=== PATIENT | female | born 1995 | race Caucasian/White ===

== ENCOUNTER 2020-11-26 17:53 | Emergency (ER) | payer OTHER, SELFPAY ==
--- NOTE | 2020-11-26 17:59 | ED.SKABFB ---
HPI - Skin/Abscess/Foreign Bdy General Chief complaint: Skin/Abscess/Foreign Body Stated complaint: cyst Time Seen by Provider: 11/26/20 18:10 Source: patient and RN notes reviewed Mode of arrival: ambulatory Limitations: no limitations History of Present Illness HPI narrative: 25-year-old female presents concern for a boil to her right lower buttock. Reports history of similar boils in the past that needed drained. Reports symptoms have been present for approximately 4 days. Denies any current drainage from the area. Denies fever, body aches, chills, sweats. Denies any other rash, open sores. complaint: abscess/boil Related Data Home Medications Medication Instructions Recorded Confirmed No Home Medications 11/26/20 11/26/20 Allergies Allergy/AdvReac Type Severity Reaction Status Date / Time No Known Allergies Allergy Verified 11/26/20 18:12 Review of Systems Review of Systems: CONSTITUTIONAL: Denies malaise, chills, sweats, or fever. SKIN: Reports a boil on the right buttock MUSCULOSKELETAL: Denies myalgia. All systems reviewed & are unremarkable except as noted in HPI and below PMFSH Comments At time of signature, agree with nursing past medical, surgical, social and family history. There is no relevant family history pertinent to the presenting complaint Exam Narrative: GENERAL: Well-appearing, well-nourished, and in no acute distress. HEAD: Normocephalic, atraumatic. EYES: PERRLA, conjunctivae clear, and EOMI. ENT: Mucous membranes moist. Oropharynx without edema, erythema or lesions. NECK: Supple. No lymphadenopathy CHEST: Clear to auscultation. No respiratory distress. HEART: Regular rate and rhythm. SKIN: Warm, dry. 3 cm raised area, fluctuant, mildly erythematous noted to the lower right buttock with an additional surrounding 2 cm palpable round area beneath the skin NEURO: Alert and oriented x3. PSYCH: Normal mood and affect Course Course Emergency Course: Discussed with patient possibility of need for antibiotics, based on results of culture. Patient prefers to wait for culture results to start antibiotic. Advised patient to use warm compresses, keep the area clean and dry. After drainage there is no concerning erythema, induration, waiting to start antibiotics is appropriate at this time Patient is aware of diagnosis, understands and agrees to treatment plan. Anticipatory guidance given. Patient agrees to follow-up as directed and is aware of reasons to seek care at the emergency department. Portions of this record may have been created with voice recognition software Vital Signs Vital signs: Reviewed. Procedures Abscess I/D lower extremity: Date of Incision: 11/26/20 Time of Incision: 18:24 Local Anesthetic: lidocaine 1% Amount of anesthesia used (mL): 3 Technique: incised with #11 blade Amount of fluid expressed (mL): 5 Irrigation: Yes Packing used?: none I&D Results: Pus MDM - Skin/Abscess/Foreign Bdy MDM Narrative Medical decision making narrative: Verbal consent was obtained. The indication for the procedure was clinical suspicion for an abscess. The region was anesthetized with 1% lidocaine. The most fluctuant portion of the abscess was incised with an 11 blade scalpel. The abscess cavity of explored and evacuated, all loculations were broken up with a curved hemostat. The cavity was then packed with packing material and dressed with a clean gauze dressing. I was present for this entire procedure and there were no complications Critical Care Time Critical Care Time Critical Care Time: No Discharge Plan Discharge Clinical Impression: Abscess of skin or subcutaneous tissue Qualifiers: Site of cutaneous abscess: buttock Qualified Code(s): L02.31 - Cutaneous abscess of buttock Patient Disposition: Home, Self-Care Condition: Stable Instructions: Abscess (ED) Additional Instructions: If the culture of yo
[2020-11-26 18:07] VITALS: BP 112/60; RESP 18; TEMP 36.9; O2SAT 100
--- NOTE | 2020-12-22 15:02 | PC.NURSE ---
Patient called to get her antibiotic from 11/26/20, D[employer] T[employer] OPERATOR Lilia Hopkins advised her we cannot prescribe antibiotic from 25 days ago and she will need to be reevaluated
== END 2020-11-26 18:43 | disposition home or self-care (01) ==
PROVIDERS: Emergency Provider Nurse Practitioner
DX: L02.31 Cutaneous abscess of buttock (principal)
CPT/HCPCS: 10060; 87070; 87075; 87077; 87186; 87205; 99202; G0463

== ENCOUNTER 2020-12-22 18:43 | Emergency (ER) | payer OTHER, SELFPAY ==
[2020-12-22 19:00] VITALS: BP 105/64; PULSE 89; RESP 18; TEMP 37.4; O2SAT 100
--- NOTE | 2020-12-22 19:05 | ED.SKABFB ---
HPI - Skin/Abscess/Foreign Bdy General Chief complaint: Skin/Abscess/Foreign Body Stated complaint: Cyst Time Seen by Provider: 12/22/20 19:06 Source: patient Mode of arrival: ambulatory Limitations: no limitations History of Present Illness HPI narrative: 25-year-old female presents to the [facility] with complaints of an abscess to her right buttock/thigh. Patient was seen for the same approximately 1 month ago. Did not follow-up nor take antibiotics. Related Data Allergies Allergy/AdvReac Type Severity Reaction Status Date / Time No Known Allergies Allergy Verified 12/22/20 18:51 Review of Systems Review of Systems: All systems reviewed & are unremarkable except as noted in HPI and below Constitutional: Constitutional: Reports no additional constitutional complaints, Denies chills and Denies fever(s) Eyes: Eyes: Reports no additional eye complaints ENT: Reports system reviewed and no additional complaints, except as documented Cardiovascular: Cardiovascular: Reports no additional cardiovascular complaints and Denies chest pain Respiratory: Respiratory: Reports no additional respiratory complaints and Denies cough Gastrointestinal: Gastrointestinal: Reports no additional gastrointestinal complaints and Denies abdominal pain Musculoskeletal: Musculoskeletal: Reports no additional musculoskeletal complaints Integumentary/Breasts: Skin/Breast: Reports as per HPI and Reports erythema (right lower buttock) Neurologic: Reports system reviewed and no additional complaints, except as documented Psychiatric: Psychiatric: Reports no additional psychiatric complaints Allergic/Immunologic: Allergic/Immunologic: Reports no additional allergic/immunologic complaints PMFSH Past Medical History Medical History (Updated 12/22/20 @ 20:00 by Lilia Hopkins) Patient denies medical problems Surgical History Surgical History (Updated 12/22/20 @ 20:00 by Lilia Hopkins) No significant past surgical history Social History Social History (Updated 12/22/20 @ 20:00 by Lilia Hopkins) Living arrangements: with family Gender identity (if verbalized by the patient): Female Comments At the time of my signature, I reviewed and agree with the nursing past medical, surgical, social, and family history. There is no relevant family history pertinent to the patient complaint. Exam Const: General: healthy appearing, no acute distress and alert Nutritional Appearance: well nourished Orientation/consciousness: patient oriented x3 Limitations: no limitations HENMT: Head: normal to inspection Eyes: Conjunctivae: conjunctivae normal Pupils: Equal, round and reactive pupils present Neck: Neck: normal visual inspection and no lymphadenopathy Chest: Chest palpation & inspection: normal inspection of the chest Resp: Effort & Inspection: normal respiratory effort Cardio: Rate: regular rate Rhythm: regular rhythm Back/Spine/Pelvis: Back: no CVA tenderness Skin: Other: 3 x 3 cm indurated area with a open center, fluctuant. Neuro: General: patient oriented x3, moves all extremities, no meningeal signs and no focal motor deficits Speech: normal speech Gait exam (Neuro): Normal gait present Extrem: General: normal to inspection Psych: Appearance: grossly normal and well kempt Mental Status: mental status grossly normal Affect: normal affect Attitude: cooperative Thought content: Yes Normal thought content present Course Course Emergency Course: Discharge instructions reviewed with patient, as well as provided in writing per nursing staff. The instructions also include specific and strict return/GO TO THE ER as well as f/u information. All questions have been answered, and the patient deny any further questions with discharge and discharge plan. Vital Signs Vital signs: Vital Signs Temperature 99.3 F 12/22/20 19:00 Pulse Rate 89 12/22/20 19:00 Respiratory Rate 18 12/22/20 19:00 Blood Pressure 105/64
[2020-12-22] MEDS: LIDOCAINE HCL 1% LOCAL INJ 20 ML VIAL 2.1 ML IM (19:40)
[2020-12-22] MEDS: cefTRIAXone 1 GM VIAL IM (19:40)
== END 2020-12-22 20:00 | disposition home or self-care (01) ==
PROVIDERS: Emergency Provider Nurse Practitioner
DX: L02.31 Cutaneous abscess of buttock (principal); L03.317 Cellulitis of buttock
CPT/HCPCS: 10060; 87070; 87075; 87205; 96372; 99213; G0463; J0696

== ENCOUNTER 2021-04-07 13:43 | Emergency (ER) | payer OTHER, SELFPAY ==
[2021-04-07 14:44] VITALS: BP 106/61; PULSE 102; RESP 18; TEMP 36.9; O2SAT 100
--- NOTE | 2021-04-07 14:56 | ED.DENTAL ---
HPI - Dental/Oral General Chief complaint: Dental/Oral Stated complaint: Lt Mouth Pain Time Seen by Provider: 04/07/21 15:08 Source: patient and RN notes reviewed Mode of arrival: ambulatory Limitations: no limitations History of Present Illness HPI Narrative: Charito is a 25-year-old female [facility] by [facility] mother. Patient states that she was at the dentist in January for a left lower molar action. Patient did not receive treatment at that time. Patient states about 1 week ago the tooth broke off. Patient states that the pain was better after the tooth broke and now the pain is worse today. Patient has some swelling to the left lower jaw MD Complaint: tooth pain Related Data Allergies Allergy/AdvReac Type Severity Reaction Status Date / Time No Known Allergies Allergy Verified 04/07/21 14:55 Review of Systems Review of Systems: CONSTITUTIONAL: Denies body aches, fever, chills, or sweats. EYES: Denies visual changes, redness, or discharge. ENT: Denies rhinorrhea, congestion, sore throat, or otalgia.+ Tooth pain CARDIOVASCULAR: Denies chest pain, palpitations, or edema. RESPIRATORY: Denies cough or dyspnea. GASTROINTESTINAL: Denies abdominal pain, nausea, vomiting, or diarrhea. GENITOURINARY: Denies dysuria or hematuria. SKIN: Denies rash, itching, or wounds. MUSCULOSKELETAL: Denies back pain, joint pain, or myalgia. NEUROLOGIC: Denies headache, numbness, tingling, or weakness. PSYCH: Denies depression or anxiety. All systems reviewed & are unremarkable except as noted in HPI and below PMFSH Past Medical History Medical History Patient denies medical problems Surgical History Surgical History No significant past surgical history Social History Social History Gender identity (if verbalized by the patient): Female Comments At time of signature, I have reviewed and agree with nursing past medical, surgical, social and family history unless otherwise noted. Please see nursing chart for further information. There is no relevant family history pertinent to the presenting complaint Exam Narrative: GENERAL: Well-appearing, well-nourished, and in no acute distress. HEAD: Normocephalic, atraumatic. EYES: EOMI. No redness or drainage. Conjunctivae normal. ENT: Mucous membranes pink and moist. Nares clear. No rhinorrhea. TMs normal bilaterally. Swelling and erythema to tooth #19; tooth #19 is fractured NECK: Normal AROM. Supple. CHEST: No respiratory distress. Clear to auscultation. ABDOMEN: Soft, nontender, nondistended, normal active bowel sounds. MUSCULOSKELETAL: No bony tenderness. EXTREMITIES: Normal range of motion. No edema. SKIN: Warm, dry, no rash. Capillary refill normal. Normal skin turgor. NEURO: No focal deficits. Alert and oriented x3. Gait steady. PSYCH: Normal affect. No signs of depression or anxiety. Course Vital Signs Vital signs: Vital Signs Temperature 36.9 C 04/07/21 14:44 Pulse Rate 102 H 04/07/21 14:44 Respiratory Rate 18 04/07/21 14:44 Blood Pressure 106/61 04/07/21 14:44 Pulse Oximetry 100 04/07/21 14:44 Temperature 36.9 C 04/07/21 14:44 Pulse Rate 102 H 04/07/21 14:44 Respiratory Rate 18 04/07/21 14:44 Blood Pressure 106/61 04/07/21 14:44 Pulse Oximetry 100 04/07/21 14:44 Reviewed MDM - Dental/Oral MDM Narrative Medical decision making narrative: Patient will be treated for a dental abscess with Augmentin twice a day for 10 days. Patient was given viscous lidocaine; and ibuprofen 800 mg alternate with Tylenol. Patient to follow-up with her dentist as soon as possible. Differential Diagnosis Differential diagnosis: Likely gingival abscess, dental caries, dental abscess and aphthous ulcer Medical Records Attestation: I reviewed the patient
== END 2021-04-07 15:20 | disposition home or self-care (01) ==
PROVIDERS: Emergency Provider Nurse Practitioner Family
DX: K04.7 Periapical abscess without sinus (principal)
CPT/HCPCS: 99213; G0463

== ENCOUNTER 2021-11-07 14:51 | Emergency (ER) | payer OTHER, SELFPAY ==
--- NOTE | 2021-11-07 14:56 | ED.SKABFB ---
HPI - Skin/Abscess/Foreign Bdy General Chief complaint: Skin/Abscess/Foreign Body Stated complaint: cyst Time Seen by Provider: 11/07/21 15:10 Source: patient and RN notes reviewed Mode of arrival: ambulatory Limitations: no limitations History of Present Illness HPI narrative: 26-year-old female presents with multiple complaints. She reports she has an abscess on the back of her right thigh, reports this is a reoccurring abscess which she has had to have drained in the past. She reports its gotten bigger over the last several days and is tender. In a second complaint she reports pink-tinged vaginal discharge. Reports her last menstrual period ended several days ago, however it was a light period. She denies concern for sexually transmitted infection. Denies dysuria, frequency, urgency, abdominal pain, nausea, vomiting, back pain. She reports history of bacterial vaginosis MD complaint: abscess/boil Related Data Allergies Allergy/AdvReac Type Severity Reaction Status Date / Time No Known Allergies Allergy Verified 11/07/21 15:07 Review of Systems Review of Systems: CONSTITUTIONAL: Denies malaise, chills, sweats, or fever. EYES: Denies redness, or discharge. ENT: Denies rhinorrhea, congestion, swollen lips, swollen tongue CARDIOVASCULAR: Denies chest pain, palpitations, or edema. RESPIRATORY: Denies cough or dyspnea. GASTROINTESTINAL: Denies abdominal pain, nausea, vomiting : Reports pink-tinged vaginal discharge that is nonodorous SKIN: Reports an abscess on the back of her right thigh reports it drained a small amount previously MUSCULOSKELETAL: Denies joint pain or myalgia. NEUROLOGIC: Denies headache. All systems reviewed & are unremarkable except as noted in HPI and below PMFSH Past Medical History Medical History Patient denies medical problems Surgical History Surgical History No significant past surgical history Social History Social History Gender identity (if verbalized by the patient): Female Comments At time of signature, agree with nursing past medical, surgical, social and family history. There is no relevant family history pertinent to the presenting complaint Exam Narrative: GENERAL: Well-appearing, well-nourished, and in no acute distress. HEAD: Normocephalic, atraumatic. EYES: PERRLA, conjunctivae clear, and EOMI. ENT: Mucous membranes moist. Oropharynx without edema, erythema or lesions. NECK: Supple. No lymphadenopathy CHEST: Clear to auscultation. No respiratory distress. HEART: Regular rate and rhythm. SKIN: Warm, dry. 3 cm x 3 cm erythematous slightly raised nodule on the back of the right thigh, nonfluctuant no current drainage NEURO: Alert and oriented x3. PSYCH: Normal mood and affect Course Course Emergency Course: No indication for incision and drainage at this time there is no fluctuation or evidence of drainage. Discussed the patient's UA results, advised patient to follow-up with gynecology or return for reevaluation if symptoms persist Patient is aware of diagnosis, understands and agrees to treatment plan. Anticipatory guidance given. Patient agrees to follow-up as directed and is aware of reasons to seek care at the emergency department. Portions of this record may have been created with voice recognition software Level of Care: Express Care Visit Vital Signs Vital signs: Reviewed. MDM - Skin/Abscess/Foreign Bdy MDM Narrative Medical decision making narrative: Exam findings show no acute concerns or changes; patient is non-toxic appearing and is in no distress. Patient is appropriate for outpatient treatment and follow-up. Differential Diagnosis Differential diagnosis: Likely abscess of skin or subcutaneous tissue, cellulitis, insect bites, impetigo and contact dermatitis Critical Care Time Criti
[2021-11-07 14:59] VITALS: BP 103/67; PULSE 100; RESP 18; TEMP 37.2; O2SAT 99
== END 2021-11-07 15:41 | disposition home or self-care (01) ==
PROVIDERS: Emergency Provider Nurse Practitioner
DX: L73.9 Follicular disorder, unspecified (principal)
CPT/HCPCS: 81003; 99213; G0463

== ENCOUNTER 2023-04-06 14:53 | Emergency (ER) | payer OTHER, SELFPAY ==
[2023-04-06 15:03] VITALS: BP 106/59; PULSE 82; RESP 16; TEMP 36.7; O2SAT 100
--- NOTE | 2023-04-06 15:31 | ED.SKABFB ---
HPI - Skin/Abscess/Foreign Bdy General Chief complaint: Skin/Abscess/Foreign Body Stated complaint: Rash Time Seen by Provider: 04/06/23 15:10 Source: patient and RN notes reviewed Mode of arrival: ambulatory Limitations: no limitations History of Present Illness HPI narrative: Patient presents today complaining of 2 large cyst to her face times 4-5 days. States he started out as bad pimples that have grown and become more painful. She has tried witch Rosa, alcohol, and pimple patches without relief. Reports history of abscesses to other parts of her body in the past. Related Data Allergies Allergy/AdvReac Type Severity Reaction Status Date / Time No Known Allergies Allergy Verified 04/06/23 15:00 Review of Systems Review of Systems: CONSTITUTIONAL: Denies body aches, fever, chills, or sweats. EYES: Denies visual changes, redness, or discharge. ENT: Denies rhinorrhea, congestion, sore throat, or otalgia. CARDIOVASCULAR: Denies chest pain, palpitations, or edema. RESPIRATORY: Denies cough or dyspnea. GASTROINTESTINAL: Denies abdominal pain, nausea, vomiting, or diarrhea. GENITOURINARY: Denies dysuria or hematuria. SKIN: Denies rash, itching, or wounds.+ facial cysts MUSCULOSKELETAL: Denies back pain, joint pain, or myalgia. NEUROLOGIC: Denies headache, numbness, tingling, or weakness. PSYCH: Denies depression or anxiety. PMFSH Past Medical History Medical History Patient denies medical problems Surgical History Surgical History No significant past surgical history Social History Social History Living arrangements: with family Gender identity (if verbalized by the patient): Female Comments At time of signature, I have reviewed and agree with nursing past medical, surgical, social and family history unless otherwise noted. Please see nursing chart for further information. There is no relevant family history pertinent to the presenting complaint Exam Narrative: GENERAL: Well-appearing, well-nourished, and in no acute distress. HEAD: Normocephalic, atraumatic. EYES: EOMI. No redness or drainage. Conjunctivae normal. ENT: Mucous membranes pink and moist. NECK: Normal AROM. CHEST: No respiratory distress. EXTREMITIES: Normal range of motion. No edema. SKIN: Warm, dry, no rash. Capillary refill normal. Normal skin turgor. Approx 2cm fluctuant, erythematous lesion to the left lower jawline. No purulent head. 1cm fluctuant lesion to the right lower jawline. NEURO: No focal deficits. Alert and oriented x3. Gait steady. PSYCH: Normal affect. No signs of depression or anxiety. Course Course Level of Care: Express Care Visit Vital Signs Vital signs: Vital Signs Temperature 98.0 F 04/06/23 15:03 Pulse Rate 82 04/06/23 15:03 Respiratory Rate 16 04/06/23 15:03 Blood Pressure 106/59 L 04/06/23 15:03 Pulse Oximetry 100 04/06/23 15:03 Oxygen Delivery Room Air 04/06/23 15:03 Temperature 98.0 F 04/06/23 15:03 Pulse Rate 82 04/06/23 15:03 Respiratory Rate 16 04/06/23 15:03 Blood Pressure 106/59 L 04/06/23 15:03 Pulse Oximetry 100 04/06/23 15:03 Oxygen Delivery Room Air 04/06/23 15:03 Reviewed Procedures Abscess I/D face: Date of Incision: 04/06/23 Time of Incision: 16:00 Side (if applicable): right Local Anesthetic: other anesthetic (LET) Technique: other (18g needle tip) Irrigation: No Packing used?: none Abcess I&D Additional Comments: Cleansed with betadine. Copious purulent discharge resulting. Patient tolerated procedure well. left jaw: Date of Incision: 04/06/23 Time of Incision: 16:00 Side (if applicable): left Local Anesthetic: lidocaine 1% Amount of anesthesia used (mL): 1
== END 2023-04-06 16:11 | disposition home or self-care (01) ==
PROVIDERS: Emergency Provider Nurse Practitioner
DX: L03.211 Cellulitis of face (principal); L02.01 Cutaneous abscess of face
CPT/HCPCS: 10061; 99213; G0463

== ENCOUNTER 2023-07-29 17:23 | Emergency (ER) | payer OTHER, SELFPAY ==
--- NOTE | 2023-07-29 17:25 | ED.EAR ---
HPI - Ear Problem General Chief complaint: Ear Stated complaint: R ear ache Time Seen by Provider: 07/29/23 18:02 Source: patient and RN notes reviewed Mode of arrival: ambulatory Limitations: no limitations History of Present Illness HPI Narrative: 27-year-old female presents concern for right ear pain. She reports symptoms started 1 week ago now causing dental pain and headache. She reports some nasal congestion and rhinorrhea. She has been taking [id number] medications including Sudafed without relief. She denies fever. She denies drainage from the ear MD Complaint: ear pain Related Data Allergies Allergy/AdvReac Type Severity Reaction Status Date / Time No Known Allergies Allergy Verified 07/29/23 17:55 Review of Systems Review of Systems: CONSTITUTIONAL: Denies malaise, chills, sweats, or fever. EYES: Denies visual changes, redness, or discharge. ENT: Reports rhinorrhea, congestion. The sinus pain, and sore throat. Reports right ear pain CARDIOVASCULAR: Denies chest pain, palpitations, or edema. RESPIRATORY: Denies cough. Denies dyspnea. GASTROINTESTINAL: Denies abdominal pain, nausea, vomiting, diarrhea SKIN: Denies rash or itching. MUSCULOSKELETAL: Denies myalgia. NEUROLOGIC: Reports headache. All systems reviewed & are unremarkable except as noted in HPI and below PMFSH Past Medical History Medical History Patient denies medical problems Surgical History Surgical History No significant past surgical history Social History Social History Living arrangements: with family Gender identity (if verbalized by the patient): Female Comments At time of signature, agree with nursing past medical, surgical, social and family history. There is no relevant family history pertinent to the presenting complaint Exam Narrative: GENERAL: Well-appearing, well-nourished, and in no acute distress. HEAD: Normocephalic EYES: PERRLA, conjunctivae clear ENT: Nares clear. Mucous membranes moist. TM pearly raymundo with dull light reflex on the right, sharp on the left; no tragal tenderness. Oropharynx not erythematous without lesions. Tonsils not enlarged and without exudate, no drooling, no hoarseness, no trismus, uvula midline. NECK: Supple. No lymphadenopathy CHEST: Clear to auscultation, breath sounds equal. No wheezing, rhonchi, rales, or stridor. No respiratory distress, speaks in full sentences. HEART: Regular rate and rhythm. No murmur heard. SKIN: Warm, dry, no rash. NEURO: Alert and oriented x3. PSYCH: Normal mood and affect Course Course Emergency Course: Patient is aware of diagnosis, understands and agrees to treatment plan. Anticipatory guidance given. Patient agrees to follow-up as directed and is aware of reasons to seek care at the emergency department. Portions of this record may have been created with voice recognition software Level of Care: Express Care Visit Vital Signs Vital signs: Reviewed. Medical Decision Making MDM Narrative Medical decision making narrative: Differential diagnosis considered: Gutierrez virus, strep pharyngitis, allergic rhinitis, upper respiratory tract infection, sinusitis, rhinosinusitis, nasopharyngitis. viral pharyngitis, otitis media, otitis externa, otitis effusion, cerumen impaction, foreign body. Exam findings show no acute concerns or changes; patient is non-toxic appearing and is in no distress. Patient is appropriate for outpatient treatment and follow-up. Critical Care Time Critical Care Time Critical Care Time: No Discharge Plan Discharge Clinical Impression: Fluid level behind tympanic membrane of right ear Patient Disposition: Home, Self-Care Condition: Stable Instructions: Fluid In The Ear (Serous Otitis Media) (ED) Additional Instructions: [place]
[2023-07-29 17:37] VITALS: BP 118/84; PULSE 72; RESP 18; TEMP 36.5; O2SAT 100
== END 2023-07-29 18:09 | disposition home or self-care (01) ==
PROVIDERS: Emergency Provider Nurse Practitioner
DX: H73.891 Other specified disorders of tympanic membrane, right ear (principal)
CPT/HCPCS: 99213; G0463

== ENCOUNTER 2023-08-17 14:57 | Emergency (ER) | payer OTHER, SELFPAY ==
[2023-08-17 15:12] VITALS: BP 107/64; PULSE 89; RESP 16; TEMP 36.9; O2SAT 100
[2023-08-17 15:14] VITALS: BP 107/64; PULSE 89; RESP 16; TEMP 36.9; O2SAT 100
--- NOTE | 2023-08-17 15:33 | ED.DENTAL ---
HPI - Dental/Oral General Chief complaint: Dental/Oral Stated complaint: dental pain Time Seen by Provider: 08/17/23 15:04 Source: patient Mode of arrival: ambulatory Limitations: no limitations History of Present Illness HPI Narrative: 27-year-old female presents to [facility] complains of left upper dental pain for the past 2 weeks. Patient reports long history of dental issues and is scheduled to see a dentist on Saturday. Patient has been taking [id number] Tylenol and ibuprofen with minimal relief. Patient reports that she had a recent ear infection and was treated with Augmentin at that time. Patient denies fever, body aches, chills, nausea vomiting, diarrhea, headache, dizziness or blurred vision. MD Complaint: tooth pain Location: Tooth # (14) Onset (ago): week(s) (2) Duration: constant Exacerbating factors: chewing and cold Context: history of dental caries Treatment prior to arrival: oral analgesic Related Data Allergies Allergy/AdvReac Type Severity Reaction Status Date / Time No Known Allergies Allergy Verified 08/17/23 15:13 Review of Systems Constitutional: Constitutional: Denies fatigue, Denies fever(s) and Denies weakness ENT: Denies vertigo, Denies dizziness and Denies epistaxis Comments: Left upper dental pain Respiratory: Respiratory: Denies cough, Denies dyspnea and Denies wheezing Gastrointestinal: Gastrointestinal: Denies diarrhea, Denies nausea and Denies vomiting Musculoskeletal: Musculoskeletal: Denies arthralgias and Denies joint swelling Integumentary/Breasts: Skin/Breast: Denies rash PMFSH Past Medical History Medical History Patient denies medical problems Surgical History Surgical History No significant past surgical history Social History Social History Living arrangements: with family Gender identity (if verbalized by the patient): Female Comments At time of signature, I agree with nursing past medical, surgical, social and family history. There is no relevant family history pertinent to the presenting complaint. Exam Const: General: healthy appearing and no acute distress Nutritional Appearance: well nourished Orientation/consciousness: patient oriented x3 Limitations: no limitations HENMT: Head: normal to inspection Ears: external ears normal, TM's normal bilaterally and EAC's normal Mouth: Yes Normal oral and palatal mucosa present and Yes moist mucous membranes Teeth and gingiva: abnormal tooth and associated gingiva upper left other (Chronic dental caries noted. Partial avulsion with severe dental caries noted to left upper tooth, tooth #14.) Throat: posterior oropharynx normal and uvula midline Eyes: Conjunctivae: conjunctivae normal Resp: Effort & Inspection: normal respiratory effort and not labored Auscultation: clear to auscultation bilaterally, no crackles, no rales and no rhonchi Cardio: Rate: regular rate Rhythm: regular rhythm Heart sounds: no murmurs Skin: General skin exam: normal color Rashes: no rashes Neuro: General: patient oriented x3 Speech: normal speech Psych: Affect: normal affect Attitude: cooperative Course Course Level of Care: Express Care Visit Vital Signs Vital signs: Vital Signs Temperature 36.9 C 08/17/23 15:12 Pulse Rate 89 08/17/23 15:12 Respiratory Rate 16 08/17/23 15:12 Blood Pressure 107/64 08/17/23 15:12 Pulse Oximetry 100 08/17/23 15:12 Oxygen Delivery Room Air 08/17/23 15:12 Temperature 36.9 C 08/17/23 15:14 Pulse Rate 89 08/17/23 15:14 Respiratory Rate 16 08/17/23 15:14 Blood Pressure 107/64 08/17/23 15:14 Pulse Oximetry 100 08/17/23 15:14 Oxygen Delivery Room Air 08/17/23 15:14 MDM - Dental/Oral MDM Narrative Medical decision making narrative: Instructed patient to keep dominick
== END 2023-08-17 15:41 | disposition home or self-care (01) ==
PROVIDERS: Emergency Provider Nurse Practitioner Family
DX: K08.89 Other specified disorders of teeth and supporting structures (principal)
CPT/HCPCS: 99213; G0463